=== PATIENT | male | born 1990 | race African-American/Black ===

== ENCOUNTER 2018-01-07 11:23 | Emergency (ER) | payer SELFPAY ==
[~2018-01-07] VITALS: Ht 175.3 cm; Wt 117.3 kg
[2018-01-07] MEDS ORDERED: ATIVAN0.5 MG PO (11:58)
[2018-01-07 12:11] VITALS: BP 145/90
== END 2018-01-07 12:11 | disposition home or self-care (01) ==
LOC: EME 11:23
DX: F41.9 Anxiety disorder, unspecified (principal)
CPT/HCPCS: 99281; 99284

== ENCOUNTER 2018-01-09 02:19 | Emergency (ER) | payer SELFPAY ==
[~2018-01-09] VITALS: Ht 175.3 cm; Wt 118.9 kg
[~2018-01-09 02:19] MED LIST: ATIVAN0.5 MG PO
[2018-01-09 02:46] LABS: HEMATOCRIT 44.6 % (38.0-50.0); MCH 30.6 PG (29.0-34.0); MCHC 33.6 G/DL (30.0-36.0); RBC DIS.WIDTH-CV 12.7 % (11.8-14.6); RBC DIS.WIDTH-SD 42.5 % (39-53); WHITE BLOOD COUNT 9.2 K/uL (4.1-10.2)
[2018-01-09 02:57] LABS: CHLORIDE 107 mEq/L (99-109); POTASSIUM 3.8 mEq/L (3.7-5.4); SODIUM 138 mEq/L (136-147)
[2018-01-09 02:58] LABS: GLUCOSE 179 mg/dL (70-99)
[2018-01-09 03:02] LABS: CREATININE 0.8 mg/dL (0.6-1.3); GFR ESTIMATE (CALCULATED) > 59 mL/min/ (58.99-99999)
[2018-01-09 03:03] LABS: UREA NITROGEN (BUN) 14 mg/dL (9-23)
[2018-01-09] MEDS ORDERED: XOPENEX HF200 INHALA IH (03:10)
[2018-01-09 03:17] LABS: PLAT.SUFFICIENCY ADEQUATE; PLATELET COUNT 195 K/uL (156-360)
[2018-01-09 04:24] VITALS: BP 128/86
== END 2018-01-09 04:25 | disposition home or self-care (01) ==
LOC: EME 02:19
DX: J45.909 Unspecified asthma, uncomplicated (principal); Z88.0 Allergy status to penicillin; F17.200 Nicotine dependence, unspecified, uncomplicated
CPT/HCPCS: 71046; 80048; 85027; 94640; 99281; 99284; J7512